=== PATIENT | male | born 1985 | race Caucasian/White ===

== ENCOUNTER 2020-03-15 19:21 | Emergency (ER) | payer OTHER ==
[~2020-03-15] VITALS: Ht 175.3 cm; Wt 83.9 kg
--- NOTE | 2020-03-15 19:33 | NUR ---
Patient to ER bed Tent 6 to gown for evaluation. Side rails up.
[2020-03-15 19:34] VITALS: BP_SYST 175
--- NOTE | 2020-03-15 19:40 | NUR ---
Pt brought by self, A&Ox4, pt presents to ER with migraine and photophobia, requesting Rx of Buthropirol spray for CASTILLO, denies N/V, skin pink and warm, cap refill <3.
--- NOTE | 2020-03-15 19:45 | NUR ---
ED MD MANCERA EVALUATING PT
--- NOTE | 2020-03-15 20:52 | NUR ---
Patient given written and verbal discharge instructions and verbalizes understanding. ER MD MANCERA discussed with patient the results and treatment provided. Patient in stable condition. ID arm band removed. Rx of BUTORPHANOL given. Patient educated on pain management and to follow up with PMD. Pain Scale 0/10. Opportunity for questions provided and answered. Medication side effect fact sheet provided.
[2020-03-15 20:59] VITALS: BP_SYST 175
[2020-03-16] MEDS ORDERED: NOREPINEPHRINE 4 MG/4 ML VIAL IV ONE (09:53)
== END 2020-03-15 20:52 | disposition home or self-care (01) ==
LOC: SED 19:21
DX: G43.901 Migraine, unspecified, not intractable, with status migrainosus (principal)
CPT/HCPCS: 99283

== ENCOUNTER 2020-04-08 02:27 | Emergency (ER) | payer OTHER ==
--- NOTE | 2020-04-08 02:40 | NUR ---
Patient left without being seen.
== END 2020-04-08 02:40 | disposition left against medical advice (07) ==
LOC: SED 02:27
DX: R07.0 Pain in throat (principal); Z53.21 Procedure and treatment not carried out due to patient leaving prior to being seen by health care provider